=== PATIENT | male | born 1985 | race American Indian/Alaskan Native ===

== ENCOUNTER 2021-02-17 10:43 | Emergency (ER) | payer SELFPAY ==
[2021-02-17 10:57] VITALS: BP 141/90
--- NOTE | 2021-02-17 11:30 | Emergency Department Report ---
Abscess Boil HPI - HPI Chief Complaint: Skin/Abscess/Foreign Body Stated Complaint: ABCESS Time Seen by Provider: 02/17/21 11:27 Duration: >1 Week Location: Perianal Severity: Mild History: Yes Pain, No Fever, No Purulent Drainage, No Numbness, No Foreign Body, No Previous History, No Insect Bite HPI: Patient is a pleasant 35-year-old -[place] male that comes to the emergency room complaining of a bump on his buttocks. Patient denies any abdominal pain or back pain. He denies any constipation or diarrhea. He denies any bloody stools. Patient states that he had it for over a week. He has been doing warm water soaks in the bathtub with some relief of pain. He denies any drainage coming from the bump. He denies any fever or chills. He has not seen his primary care doctor. Patient has no history of the same. He denies any trauma, insect bite or other triggering event. On arrival to [facility] patient is ambulatory, [id number] nontoxic Home Medications: Previous Rx's Medication Instructions Recorded Last Taken Type Ibuprofen [Motrin] 800 mg PO Q8HR PRN #30 tablet 02/17/21 Unknown Rx cephALEXin [Keflex] 500 mg PO Q12HR #20 cap 02/17/21 Unknown Rx Allergies/Adverse Reactions: Allergies Allergy/AdvReac Type Severity Reaction Status Date / Time No Known Allergies Allergy Unverified 02/17/21 10:53 ED Review of Systems ROS: Stated complaint: ABCESS Other details as noted in HPI Comment: All other systems reviewed and negative ED Past Medical Hx - Past Medical History Previous Medical History?: No - Surgical History Past Surgical History?: No - Family History Family history: no significant - Social History Smoking Status: Never Smoker Substance Use Type: None - Medications Home Medications: Home Medications Medication Instructions Recorded Confirmed Last Taken Type Ibuprofen [Motrin] 800 mg PO Q8HR PRN #30 tablet 02/17/21 Unknown Rx cephALEXin [Keflex] 500 mg PO Q12HR #20 cap 02/17/21 Unknown Rx ED Abscess Boil Physical Exam - Exam General: Vital signs noted. No distress. Alert and acting appropriately. Size: 1 cm Exam: Yes Tenderness, Yes Normal Neurologic Exam, Yes Normal Circulation, No Fluctuance, No Surrounding Cellulites/Erythema, No Lymphangitis, No Crepitation, No Heart Murmur Exam: While laying on his stomach patient examined and he has a pinpoint beck to the left of his anus. It appears to be an ingrown hair that has triggered this event. There is no surrounding erythema. It is so minutely small it is not amenable to I&D. There is no drainage on exam. ED Course Vital Signs 02/17/21 10:55 Temperature 99.2 F Pulse Rate 89 Respiratory 18 Rate Blood Pressure 141/90 [Right] O2 Sat by Pulse 99 Oximetry Critical care attestation.: If time is entered above; I have spent that time in minutes in the direct care of this critically ill patient, excluding procedure time. ED Medical Decision Making - Medical Decision Making Vital Signs (72 hours) 02/17/21 10:55 Temperature 99.2 F Pulse Rate 89 Respiratory 18 Rate Blood Pressure 141/90 [Right] O2 Sat by Pulse 99 Oximetry - Differential Diagnosis simple abscess ED Disposition Clinical Impression: Abscess Disposition: DC-01 TO HOME OR SELFCARE Is pt being admited?: No Does the pt Need Aspirin: No Condition: Stable Instructions: Skin Abscess Additional Instructions: warm soaks with epsom salts as we discussed meds as ordered follow up with pcp Sunday referral below Prescriptions: cephALEXin [Keflex] 500 mg PO Q12HR #20 cap Ibuprofen [Motrin] 800 mg PO Q8HR PRN #30 tablet PRN Reason: Pain, Moderate (4-6) Referrals: GISSELLE VIVEROS MD [Staff Physician] - 3-5 Days Forms: Work/School Release Form(ED) Time of Disposition: 11:29
== END 2021-02-17 11:31 | disposition home or self-care (01) ==
LOC: ED 10:43
DX: L02.31 Cutaneous abscess of buttock (principal); Z79.899 Other long term (current) drug therapy
CPT/HCPCS: 99282